=== PATIENT | male | born 1995 | race Caucasian/White ===

== ENCOUNTER 2017-07-12 20:15 | Emergency (ER) | payer OTHER ==
[2017-07-12] MEDS ORDERED: LIDOCAINE HCL 2% 100 MG/5 ML SYRINGE IV PUSH ONE (20:16)
[2017-07-12] MEDS ORDERED: EPINEPHrine HCL (1:1000) 30 MG/30 ML VIAL IV ONE (20:16)
[2017-07-12] MEDS ORDERED: CALCIUM CHLORIDE 10% SOLN 1 GRAM/10 ML SYR IV ONE (20:16)
[2017-07-12] MEDS ORDERED: SUCCINYLCHOLINE CHLORIDE 100 MG/5 ML SYRINGE IV PUSH ONE (20:16)
[2017-07-12] MEDS ORDERED: SODIUM BICARBONATE 8.4% INJ 50 MEQ/50 ML SYR IV ONE (20:16)
[2017-07-12] MEDS ORDERED: EPINEPHrine HCL (1:10,000) 1 MG/10 ML SYRINGE IV ONE (20:16)
[2017-07-12 20:20] VITALS: O2SAT 90
[2017-07-12] MEDS ORDERED: MIDAZOLAM HCL 5 MG/ML VIAL (1 ML) ONE (20:20)
[2017-07-12] MEDS ORDERED: ceFAZolin 2 GM PREMIX 50 ML ONE (20:31)
[2017-07-12 20:46] LABS: AUTOMATED NEUTROPHIL # 6.4 TH/MM3 (1.8-7.7); BASOPHIL # 0.1 TH/MM3 (0-0.2); BASOPHIL % 0.6 % (0.0-2.0); EOSINOPHIL # 0.1 TH/MM3 (0-0.4); EOSINOPHIL % 0.6 % (0.0-4.0); HEMATOCRIT 34.3 % (39.0-51.0); HEMOGLOBIN 11.2 GM/DL (13.0-17.0); LYMPH % 39.3 % (9.0-44.0); LYMPHOCYTE # 4.4 TH/MM3 (1.0-4.8); MEAN CELL VOLUME 91.4 FL (80.0-100.0); MEAN CORPUSCULAR HEMOGLOBIN 29.7 PG (27.0-34.0); MEAN CORPUSCULAR HGB CONC 32.5 % (32.0-36.0); MEAN PLATELET VOLUME 8.4 FL (7.0-11.0); MONO % 2.1 % (0.0-8.0); MONOCYTE # 0.2 TH/MM3 (0-0.9); NEUT % 57.4 % (16.0-70.0); PLATELET COUNT 185 TH/MM3 (150-450); RED BLOOD COUNT 3.75 MIL/MM3 (4.50-5.90); RED CELL DISTRIBUTION WIDTH 13.6 % (11.6-17.2); WHITE BLOOD COUNT 11.2 TH/MM3 (4.0-11.0)
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
--- NOTE | 2017-07-12 20:56 | RADRPT ---
EXAM DATE: 07/12/2017 8:53 PM EDT AGE/SEX: 89 years / Male INDICATIONS: Post chest tube placement. CLINICAL DATA: This is the patient's subsequent encounter. Patient reports that signs and symptoms h ave been present for 1 day and indicates a pain score of Nonresponsive. MEDICAL/SURGICAL HISTORY: Non-responsive. Non-responsive. COMPARISON: No prior [facility] exams available for comparison. FINDINGS: Backboard artifact is noted. EKG leads overlie the chest. NG tube coiled in the stomach. There are mu ltiple right-sided rib fractures, subcutaneous air and a right-sided chest tube is noted. There is pa tchy parenchymal density on the right. Visualized portions of the left lung are grossly clear. A righ t scapula fracture is suspected. Right-sided pneumothorax is noted with lucency at the right mid to l ower lung zones laterally. CONCLUSION: Numerous right-sided rib fractures, consolidation, and a right-sided pneumothorax is present. Scapula r fracture suspected. Electronically signed by: Rob Gamboa MD 07/12/2017 8:55 PM EDT
[2017-07-12] MEDS ORDERED: CALCIUM CHLORIDE 10% SOLN 1 GRAM/10 ML SYR ONE (20:57)
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
[2017-07-12 21:04] LABS: INTERNATIONAL NORMALIZED RATIO 1.5 RATIO; PROTHROMBIN TIME - PATIENT 15.4 SEC (9.8-11.6)
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
[2017-07-12] MEDS ORDERED: VECURONIUM BROMIDE 10 MG VIAL IV ONE (21:15)
[2017-07-12] MEDS ORDERED: DIPHTH/TETANUS/ACEL PERTUSSIS (BOOSTER) 0.5 ML VIAL/PFS IM ONE (21:15)
[2017-07-12] MEDS ORDERED: ceFAZolin 2 GM/NS PREMIX 100 ML IV ONE (21:15)
[2017-07-12] MEDS ORDERED: SODIUM CHLOR 0.9% 1000 ML INJ 1,000 ML IV SCH (21:15)
[2017-07-12] MEDS ORDERED: MIDAZOLAM HCL 2 MG/2 ML VIAL IV ONE (21:15)
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
[2017-07-12] MEDS ORDERED: VECURONIUM BROMIDE 10 MG VIAL ONE (21:49)
[2017-07-12] MEDS ORDERED: TRANEXAMIC ACID INJ 1,000 MG/10 ML AMP ONE ×2 (21:51→21:52)
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
== END 2017-07-13 00:15 | disposition expired ==
LOC: NEPI 20:15 → EDBD 20:15 → NEDA 20:47 → UNDOADMIN 20:47 → NEPI 07-13 00:15
DX: S27.2XXA Traumatic hemopneumothorax, initial encounter (principal); R57.1 Hypovolemic shock; V27.4XXA Motorcycle driver injured in collision with fixed or stationary object in traffic accident, initial encounter; Y93.I9 Activity, other involving external motion; Y92.414 Local residential or business street as the place of occurrence of the external cause
CPT/HCPCS: 32551; 36430; 36556; 36600; 70450; 71045; 72125; 72170; 80048; 80307; 82805; 85025; 85610; 85730; 86850; 86900; 86901; 86920; 90471; 90715; 92950; 96374; 96375; 99291; A0431; A0436; J0171; J0330; J0690; J2250; P9016; P9017; G0390